=== PATIENT | male | born 1980 | race Caucasian/White ===

== ENCOUNTER 2020-11-25 09:13 | Day surgery (SDC) | payer MEDICARE ==
[~2020-11-25 09:13] MED LIST: Midazolam 1 MG/ML 2 ML SDV ONE; Propofol 200 MG/20 ML SDV ONE; Sodium Chloride 0.9% 10 ML Syringe FLUSH PRN
[2020-11-25] MEDS: Lactated Ringers 1,000 ML IV SCH (09:49)
[2020-11-25] MEDS ORDERED: Propofol 200 MG/20 ML SDV ONE (10:33)
[2020-11-25] MEDS ORDERED: Glycopyrrolate 0.2 MG/ML SDV ONE (10:33)
[2020-11-25] MEDS ORDERED: Midazolam 1 MG/ML 2 ML SDV ONE (10:33)
[2020-11-25] MEDS ORDERED: Lidocaine 2% 5 ML SDV ONE (10:33)
--- NOTE | 2020-11-25 10:41 | PCM.HPR ---
H & P Addendum review - H & P Addendum Review Date of Original H & P: 11/10/20 Date Reviewed: 11/25/20 Time Reviewed: 10:30 Patient was Examined: No Changes
--- NOTE | 2020-11-25 11:07 | PCM.OPNOTE ---
- General Post-Op/Procedure Note Date of Surgery/Procedure: 11/25/20 Operative Procedure(s): EGD and Colonoscopy Findings: Normal egd Sig tics Pre Op Diagnosis: FE Def Anemia Post-Op Diagnosis: Same Anesthesia Technique: MAC Primary Surgeon: Lebron Mcmillan Anesthesia Provider: Esther Wilson Complications: None Condition: Good
[2020-11-25 11:58] VITALS: BP 142/93; PULSE 78
--- NOTE | 2020-11-26 07:53 | OR ---
Date of Procedure: 11/25/2020 PREOPERATIVE DIAGNOSIS: Iron-deficiency anemia. POSTOPERATIVE DIAGNOSES: 1. Normal esophagogastroduodenoscopy. 2. Sigmoid diverticulosis. PROCEDURES: 1. Esophagogastroduodenoscopy. 2. Colonoscopy. ANESTHESIA: IV sedation. DESCRIPTION OF PROCEDURE: The patient was brought to the procedure room where he was placed on his left side and IV sedation administered. Oral bite block was placed and the upper endoscope advanced into the esophagus under direct vision without difficulty. Vocal cords were viewed and were normal. The scope was advanced to the second portion of the duodenum. Duodenum and pylorus were normal. Antrum and body of the stomach were normal. Retroflexion revealed a normal-appearing fundus. No hiatal hernia was present. Squamocolumnar junction was normal. There was no evidence of reflux esophagitis. Air was removed from the stomach and the scope withdrawn through the remaining esophagus which appeared normal. The patient tolerated this portion of the procedure well. Next, colonoscopy was performed after digital rectal exam was done which was normal. Colonoscope was inserted and advanced to the level of the cecum without difficulty. Cecal position was confirmed by identifying the appendiceal lumen and ileocecal valve. Prep was good and surfaces were well visualized. Upon withdrawing the scope, the ascending, transverse, and descending colon were normal in appearance. Sigmoid colon had a few diverticula present. Rectum was normal and retroflexion was normal. Air was removed and the scope withdrawn. The patient tolerated the procedure well and returned to recovery in stable condition. No source of anemia was identified. He should consider routine colon screening again in 10 years. VJ BOLTON MD /[id number]
== END 2020-11-25 12:02 | disposition home or self-care (01) ==
LOC: LL.SDS 09:13
PROVIDERS: ATTEND Surgery
DX: K57.30 Diverticulosis of large intestine without perforation or abscess without bleeding (principal); D50.9 Iron deficiency anemia, unspecified; K21.9 Gastro-esophageal reflux disease without esophagitis; E03.9 Hypothyroidism, unspecified; Z79.899 Other long term (current) drug therapy; Z87.891 Personal history of nicotine dependence; Z80.0 Family history of malignant neoplasm of digestive organs; Z79.890 Hormone replacement therapy
CPT/HCPCS: 00813; 43235; 45378; J2250; J2704; J3490; J7120